=== PATIENT | female | born 1995 | race Caucasian/White ===

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

== ENCOUNTER 2017-09-12 20:10 | Emergency (ER) | payer OTHER ==
[~2017-09-12] VITALS: Ht 167.6 cm; Wt 53.5 kg
[2017-09-12 22:40] VITALS: BP 131/77
== END 2017-09-12 22:40 | disposition home or self-care (01) ==
LOC: ED 20:10
DX: N39.0 Urinary tract infection, site not specified (principal)
CPT/HCPCS: 36415

== ENCOUNTER 2018-11-02 14:45 | Emergency (ER) | payer OTHER ==
[2018-11-02 14:49] VITALS: Ht 167.6 cm
[2018-11-02 16:52] VITALS: BP 107/61
== END 2018-11-02 17:11 | disposition home or self-care (01) ==
LOC: ED 14:45
DX: O26.893 Other specified pregnancy related conditions, third trimester (principal); R10.30 Lower abdominal pain, unspecified; N39.0 Urinary tract infection, site not specified; Z3A.28 28 weeks gestation of pregnancy